=== PATIENT | male | born 1955 | race Caucasian/White ===

== ENCOUNTER 2017-10-21 21:07 | Inpatient (IN) | payer BC ==
[~2017-10-21] VITALS: Ht 165.1 cm; Wt 90.0 kg
[2017-10-21 21:25] VITALS: BP 80/45; PULSE 78; RESP 16; O2SAT 99
[2017-10-21] MEDS ORDERED: SODIUM CHLOR 0.9% 1000 ML INJ 1,000 ML IV ONE ×3 (21:26→23:00)
[2017-10-21 21:30] VITALS: O2SAT 99
[2017-10-21] MEDS ORDERED: SODIUM CHLORIDE 0.9% FLUSH 10 ML FLUSH IVF PRN (21:30)
[2017-10-21 21:58] VITALS: BP 99/52; PULSE 80; RESP 18; O2SAT 99
[2017-10-21 22:04] LABS: AUTOMATED NEUTROPHIL # 7.8 TH/MM3 (1.8-7.7); BASOPHIL % 0.2 % (0.0-2.0); HEMOGLOBIN 13.8 GM/DL (13.0-17.0); LYMPH % 8.7 % (9.0-44.0); LYMPHOCYTE # 0.9 TH/MM3 (1.0-4.8); MEAN CELL VOLUME 88.7 FL (80.0-100.0); MEAN CORPUSCULAR HEMOGLOBIN 29.1 PG (27.0-34.0); MEAN CORPUSCULAR HGB CONC 32.8 % (32.0-36.0); MEAN PLATELET VOLUME 8.5 FL (7.0-11.0); MONO % 10.8 % (0.0-8.0); MONOCYTE # 1.1 TH/MM3 (0-0.9); NEUT % 80.3 % (16.0-70.0); PLATELET COUNT 212 TH/MM3 (150-450); RED BLOOD COUNT 4.74 MIL/MM3 (4.50-5.90); RED CELL DISTRIBUTION WIDTH 12.2 % (11.6-17.2); WHITE BLOOD COUNT 9.8 TH/MM3 (4.0-11.0)
[2017-10-21 22:10] LABS: CHLORIDE 95 MEQ/L (98-107); SODIUM (NA) 130 MEQ/L (136-145)
[2017-10-21 22:14] LABS: BICARBONATE 27.2 MEQ/L (21.0-32.0); CALCIUM 8.4 MG/DL (8.5-10.1)
--- NOTE | 2017-10-21 22:14 | PD ---
HPI Chief Complaint: GI Complaint Time Seen by Provider: 21:26 Travel History International Travel<30 days: No Contact w/Intl Traveler<30days: No Traveled to known affect area: No History of Present Illness HPI 62-year-old male presents to the emergency department by private transportation the care of her spouse for evaluation of generalized weakness with diarrhea. According the patient 2 days ago he developed diarrheal illness with nausea and vomiting after eating a [employer]-román[employer] sandwich on Saturday. Patient is diabetic. Patient has had poor oral intake but has continue to administer insulin. Patient was visiting out of state in [place] and decided to drive home instead of being evaluated when his symptoms began in [place]. Patient suspects he may have had some food poisoning. No report of chills or fever. Patient has had no hematemesis no coffee-ground emesis no melena or hematochezia. Patient is not reporting abdominal pain. Patient has noted progressively worsening generalized weakness. Patient has history of diabetes as well as coronary vessel disease with previous ME and CABG. Patient does not report any chest pain or referred neck jaw back shoulder arm pain. Patient has experienced some diaphoresis. PFSH Past Medical History Narrative Medical CAD ME dyslipidemia diabetes CABG HTN occasional alcohol use no tobacco use; nursing notes reviewed High Cholesterol: Yes Diabetes: Yes Patient Takes Glucophage: No Diminished Hearing: No Hypertension: Yes Tetanus Vaccination: < 5 Years Influenza Vaccination: Yes ?: Not Past Surgical History Coronary Artery Bypass Graft: Yes ([place] Bypass 2001) Social History Alcohol Use: Yes (social) Tobacco Use: No Substance Use: No Allergies-Medications (Allergen,Severity, Reaction): Coded Allergies: No Known Allergies (Verified Allergy, Unknown, 10/21/17) Narrative Medication Insulin crestor ramipril aspirin Review of Systems Except as stated in HPI: all other systems reviewed are Neg General / Constitutional: Positive: Chills, No: Fever HENT: No: Congestion Cardiovascular: No: Chest Pain or Discomfort Respiratory: No: Shortness of Breath Gastrointestinal: Positive: Nausea, Diarrhea, No: Hematemesis, Hematochezia Genitourinary: Positive: Decreased Urinary Output, No: Dysuria Musculoskeletal: No: Myalgias, Arthralgias Skin: No Rash Neurologic: Positive: Weakness Psychiatric: No: Anxiety Hematologic/Lymphatic: No: Lymph Node Enlargement Physical Exam Narrative GENERAL: Well-developed well-nourished male in no acute distress no respiratory distress however is noted to be hypotensive; blood sugar is 328 SKIN: Warm and dry. HEAD: Normocephalic. EYES: No scleral icterus. No injection or drainage. NECK: Supple, trachea midline. No JVD or lymphadenopathy. CARDIOVASCULAR: Regular rate and rhythm without murmurs, gallops, or rubs. RESPIRATORY: Breath sounds equal bilaterally. No accessory muscle use. GASTROINTESTINAL: Abdomen soft, non-tender, nondistended. MUSCULOSKELETAL: No cyanosis, or edema. BACK: Nontender without obvious deformity. No CVA tenderness. Data Data Last Documented VS Vital Signs Date Time Temp Pulse Resp B/P (MAP) Pulse Ox O2 Delivery O2 Flow Rate FiO2 10/21/17 22:57 88 18 113/58 (76) 95 Room Air Orders Orders Electrocardiogram (10/21/17 21:26) Complete Blood Count With Diff (10/21/17 21:26) Comprehensive Metabolic Panel (10/21/17 21:26) Magnesium (Mg) (10/21/17 21:26) Beta Hydroxybutyrate (Acetone) (10/21/17 21:26) Lactic Acid (10/21/17 21:26) Urinalysis - C+S If Indicated (10/21/17 21:26) Blood Culture (10/21/17 21:26) Chest, Single Ap (10/21/17 21:26) Blood Glucose (10/21/17 21:26) Ecg Monitoring (10/21/17 21:26) Iv Access Insert/Monitor (10/21/17 21:26) Oximetry (10/21/17 21:26) NPO (10/21/17 21:26) Sodium Chlor 0.9% 1000 Ml Inj (Ns 1000 M (10/21/17 21:26) Sodium Chlor 0.9% 1000 Ml Inj (Ns 1000 M (10/21/17 21:56) Sodium Chloride 0.9% Flush (Ns Flush) (10/21/17 21:30) Troponin I (10/21/17 21:26) Lipase (10/21/17 21:26) Enteric Path (Stool) (10/21/17 21:26) Blood Gas Venous Ph (10/21/17 21:26) Sodium Chlor 0.9% 1000 Ml Inj (Ns 1000 M (10/21/17 23:00) Ckmb (Isoenzyme) Profile (10/21/17 21:50) CKMB (10/21/17 21:50) CKMB% (10/21/17 21:50) C Diff Toxin Pcr (10/21/17 23:18) Admit Order (Ed Use Only) (10/21/17 ) Gypsum Block Setter / Telemetry SAE.Q8H (10/21/17 23:19) Activity Bed Rest (10/21/17 23:19) Notify Dr: Other (10/21/17 23:19) Consult Cardiology (10/21/17 ) Labs Laboratory Tests Test 10/21/17 21:48 10/21/17 21:50 10/21/17 23:15 Venous Blood pH 7.39 White Blood Count 9.7 TH/MM3 Red Blood Count 4.74 MIL/MM3 Hemoglobin 14.1 GM/DL Hematocrit 42.5 % Mean Corpuscular Volume 89.6 FL Mean Corpuscular Hemoglobin 29.8 PG Mean Corpuscular Hemoglobin Concent 33.3 % Red Cell Distribution Width 12.8 % Platelet Count 228 TH/MM3 Mean Platelet Volume 9.6 FL Neutrophils (%) (Auto) 80.3 % Lymphocytes (%) (Auto) 8.7 % Monocytes (%) (Auto) 10.8 % Eosinophils (%) (Auto) 0.0 % Basophils (%) (Auto) 0.2 % Neutrophils # (Auto) 7.8 TH/MM3 Lymphocytes # (Auto) 0.9 TH/MM3 Monocytes # (Auto) 1.1 TH/MM3 Eosinophils # (Auto) 0.0 TH/MM3 Basophils # (Auto) 0.0 TH/MM3 CBC Comment DIFF FINAL Differential Comment Prothrombin Time 11.1 SEC Prothromb Time International Ratio 1.1 RATIO Activated Partial Thromboplast Time 27.5 SEC Blood Urea Nitrogen 19 MG/DL Creatinine 2.30 MG/DL Random Glucose 345 MG/DL Total Protein 7.4 GM/DL Albumin 3.0 GM/DL Calcium Level 8.4 MG/DL Magnesium Level 2.1 MG/DL Alkaline Phosphatase 96 U/L Aspartate Amino Transf (AST/SGOT) 36 U/L Alanine Aminotransferase (ALT/SGPT) 15 U/L Total Bilirubin 0.8 MG/DL Sodium Level 130 MEQ/L Potassium Level 4.0 MEQ/L Chloride Level 95 MEQ/L Carbon Dioxide Level 27.2 MEQ/L Anion Gap 8 MEQ/L Estimat Glomerular Filtration Rate 29 ML/MIN Lactic Acid Level 1.8 mmol/L Total Creatine Kinase 260 U/L Creatine Kinase MB 1.4 NG/ML Troponin I 0.15 NG/ML Lipase 98 U/L B-Hydroxybutyrate 0.49 MMOL/L Stool C. difficile Toxin (PCR) NEGATIVE Stl C. difficile Toxin Epiderm 027 PRESUMPTIVE NEGATIVE MDM Medical Decision Making Medical Screen Exam Complete: Yes Emergency Medical Condition: Yes Medical Record Reviewed: Yes Interpretation(s) EKG: Normal sinus rhythm rate 82 right ventricular conduction delay age- indeterminate inferior ME with no acute ST elevation venous pH: 7.39, wnl Last Impressions Chest X-Ray 10/21/172125 Signed Impressions: Service Date/Time: Saturday, October 21, 2017 21:47 - CONCLUSION: 1. No active disease. Postoperative median sternotomy. Calvin Lafleur MD CBC & BMP Diagram 10/21/17 21:50 Total Protein 7.4, Albumin 3.0 L, Calcium Level 8.4 L, Magnesium Level 2.1, Alkaline Phosphatase 96, Aspartate Amino Transf (AST/SGOT) 36, Alanine Aminotransferase (ALT/SGPT) 15, Total Bilirubin 0.8 Vital Signs Date Time Temp Pulse Resp B/P (MAP) Pulse Ox O2 Delivery O2 Flow Rate FiO2 10/21/17 21:58 80 18 99/52 (68) 99 Room Air 10/21/17 21:30 99 Room Air 10/21/17 21:25 16 10/21/17 21:25 78 16 80/45 (57) 99 Room Air troponin I: 0.15, elevated BHB: 0.49, elevated Differential Diagnosis Generalized weakness, sepsis, gastroenteritis, uncontrolled diabetes/ hyperglycemia, KEWEENAW, dka, electrolyte disturbance, ACS, ME, cardiogenic shock Narrative Course Patient placed on bus driver/monitor IV access obtained specimens collected and sent for resulting EKG shows no acute ST elevation or injury pattern age- indeterminate inferior ME is noted venous pH is 7.39 patient administered 2 L of normal saline and random bedside glucose is 328. Lab work is remarkable for troponin I of 0.15 this is elevated; beta hydroxybutyric acid is mildly elevated at 0.49 upper limit of normal is 0.39; patient has been re-interviewed and again denies any chest pain referred neck jaw back shoulder arm or abdominal pain. Patient states that he has a history of ME with an abnormal EKG. Patient is unaware of any renal insufficiency. Patient's crown ironer is Dr. Levon Mullins and he is scheduled for stress test March 2018. Patient given additional IV fluid bolus as he is still not produced any urine/ urine output also no loose stool or diarrhea. Patient denies any nausea has had no vomiting here. Denies any chest pain or nausea and has had no vomiting here also no referred neck jaw back shoulder arm pain and no diaphoresis or shortness of breath. Discussed with his crown ironer Dr Mullins ---wants patient transferred to [facility] w/ heparin; patient aware of plan for admission and transfer; call placed to [facility] MD service for admission --Dr Ibarra- ordered heparin and c.diff Critical Care Narrative Aggregate critical care time was 35 minutes. Time to perform other separately billable procedures was not included in the critical care time. My time did not include minutes spent treating any other patients simultaneously or on activities that did not directly contribute to the patient's treatment. The services I provided to this patient were to treat and/or prevent clinically significant deterioration that could result in: ME cardiogenic shock dka I provided critical care services requiring my management, as noted below: Chart data review, documentation time, medication orders and management, vital sign assessments/reviewing monitor data, ordering and reviewing lab tests, ordering and interpreting/reviewing x-rays and diagnostic studies, care of the patient and discussion of the patient with the admitting physicians. HemaPrompt Point of Care Internal Pos. & Neg. Controls: Passed Fecal Specimen Occult Blood: Negative ((watery green stool/diarrhea specimen)) Physician Communication Physician Communication call placed to cardiology; call placed to [facility] Diagnosis Primary Impression: ACS (acute coronary syndrome) Additional Impressions: Elevated troponin I level Diabetes mellitus with hyperglycemia Qualified Codes: E11.65 - Type 2 diabetes mellitus with hyperglycemia; Z79.4 - nursing home (current) use of insulin Gastroenteritis Renal insufficiency Admitting Information Admitting Physician Requests: Admit Camille Leonard MD October 21, 2017 22:14
[2017-10-21 22:15] LABS: BLOOD UREA NITROGEN 19 MG/DL (7-18); GLUCOSE,RANDOM 345 MG/DL (74-106); MAGNESIUM 2.1 MG/DL (1.5-2.5)
[2017-10-21 22:17] LABS: ALT (GPT) 15 U/L (12-78)
[2017-10-21 22:18] LABS: AST (GOT) 36 U/L (15-37); GLOMERULAR FILTRATION RATE 29 ML/MIN (>89)
[2017-10-21 22:19] LABS: TOTAL BILIRUBIN ADULT 0.8 MG/DL (0.2-1.0); TOTAL PROTEIN 7.4 GM/DL (6.4-8.2)
[2017-10-21 22:20] LABS: ALKALINE PHOSPHATASE 96 U/L (45-117)
--- NOTE | 2017-10-21 22:21 | RADRPT ---
EXAM DATE/TIME: 10/21/2017 21:47 [facility] COMPARISON: No previous studies available for comparison. INDICATIONS : Shortness of breath. MEDICAL HISTORY : None. SURGICAL HISTORY : CABG. ENCOUNTER: Initial ACUITY: 2 days PAIN SCORE: 0/10 LOCATION: Bilateral chest FINDINGS: A single view of the chest demonstrates the lungs to be symmetrically aerated without evidence of mas s, infiltrate or effusion. The cardiomediastinal contours are unremarkable. Osseous structures are intact. CONCLUSION: 1. No active disease. Postoperative median sternotomy. Calvin Lafleur MD on October 21, 2017 at 22:18 Board Certified Radiologist. This report was verified electronically.
[2017-10-21 22:23] LABS: TROPONIN I 0.15 NG/ML (0.02-0.05)
[2017-10-21 22:57] VITALS: BP 113/58; PULSE 88; RESP 18; O2SAT 95
[2017-10-21] MEDS ORDERED: HEPARIN SODIUM - IV 10,000 UNITS/10 ML VIAL IV ONE (23:30)
[2017-10-21] MEDS ORDERED: MAGNESIUM HYDROXIDE SUSP 30 ML CUP PO PRN (23:30)
[2017-10-21] MEDS ORDERED: HEPARIN-D5W 25,000 U/250 ML 250 ML IV PRN (23:30)
[2017-10-21] MEDS ORDERED: ASPIRIN 81 MG CHEW TAB CHEW ONE (23:30)
[2017-10-21] MEDS ORDERED: BISACODYL 10 MG SUPP RECTAL PRN (23:30)
[2017-10-21] MEDS ORDERED: NALOXONE HCL 0.4 MG/ML AMP IV PUSH PRN (23:30)
[2017-10-21] MEDS ORDERED: LACTULOSE SYRUP 20 GM/30 ML CUP PO PRN (23:30)
[2017-10-21] MEDS ORDERED: ONDANSETRON HCL 4 MG/2 ML VIAL IVP PRN (23:30)
[2017-10-21] MEDS ORDERED: SODIUM CHLORIDE 0.9% FLUSH 10 ML FLUSH IV FLUSH PRN (23:30)
[2017-10-21] MEDS ORDERED: SENNOSIDES 8.6 MG TAB PO PRN (23:30)
[2017-10-21] MEDS ORDERED: HEPARIN 25,000 UNITS-D5W 250 ML - PREMIX IV PRN (23:45)
[2017-10-21 23:49] LABS: HEMATOCRIT 42.5 % (39.0-51.0); HEMOGLOBIN 14.1 GM/DL (13.0-17.0); MEAN CELL VOLUME 89.6 FL (80.0-100.0); MEAN CORPUSCULAR HEMOGLOBIN 29.8 PG (27.0-34.0); MEAN CORPUSCULAR HGB CONC 33.3 % (32.0-36.0); MEAN PLATELET VOLUME 9.6 FL (7.0-11.0); PLATELET COUNT 228 TH/MM3 (150-450); RED BLOOD COUNT 4.74 MIL/MM3 (4.50-5.90); RED CELL DISTRIBUTION WIDTH 12.8 % (11.6-17.2); WHITE BLOOD COUNT 9.7 TH/MM3 (4.0-11.0)
[2017-10-22] VITALS (22 sets, daily range): BP systolic 99–144; BP diastolic 52–72; PULSE 67–94; RESP 16–18; TEMP 97.9–98.2; O2SAT 95–98
[2017-10-22 00:02] LABS: INTERNATIONAL NORMALIZED RATIO 1.1 RATIO; PROTHROMBIN TIME - PATIENT 11.1 SEC (9.8-11.6)
[2017-10-22] MEDS: SODIUM CHLOR 0.9% 1000 ML INJ 1,000 ML IV SCH ×3 (00:06→19:20)
[2017-10-22 03:54] LABS: BILIRUBIN, URINE NEG (NEG); BLOOD, URINE TRACE (NEG); GLUCOSE,URINE 250 mg/dL (NEG); KETONE, URINE NEG (NEG); NITRITE,URINE NEG (NEG); PH, URINE 5.5 (5.0-8.5); URINE COLOR YELLOW (YELLW/STRAW); URINE LEUKOCYTE ESTERASE NEG (NEG)
[2017-10-22 03:59] LABS: SQUAMOUS EPITHELIAL CELL URINE 0-5 /hpf (0-5); WBC, URINE 0-2 /hpf (0-5)
[2017-10-22] MEDS ORDERED: ROSU5 PO (04:15)
[2017-10-22] MEDS ORDERED: LOTE20TA PO (04:15)
[2017-10-22] MEDS ORDERED: LIPI10TA PO (04:15)
[2017-10-22] MEDS ORDERED: HEPARIN SODIUM - IV 10,000 UNITS/10 ML VIAL IV PRN ×2 (05:30)
[2017-10-22 06:25] LABS: AUTOMATED NEUTROPHIL # 4.9 TH/MM3 (1.8-7.7); BASOPHIL % 0.5 % (0.0-2.0); EOSINOPHIL % 0.1 % (0.0-4.0); HEMOGLOBIN 12.8 GM/DL (13.0-17.0); LYMPH % 20.1 % (9.0-44.0); LYMPHOCYTE # 1.4 TH/MM3 (1.0-4.8); MEAN CELL VOLUME 89.8 FL (80.0-100.0); MEAN CORPUSCULAR HEMOGLOBIN 29.4 PG (27.0-34.0); MEAN CORPUSCULAR HGB CONC 32.7 % (32.0-36.0); MEAN PLATELET VOLUME 8.2 FL (7.0-11.0); MONO % 11.7 % (0.0-8.0); MONOCYTE # 0.8 TH/MM3 (0-0.9); NEUT % 67.6 % (16.0-70.0); PLATELET COUNT 188 TH/MM3 (150-450); RED BLOOD COUNT 4.34 MIL/MM3 (4.50-5.90); RED CELL DISTRIBUTION WIDTH 12.4 % (11.6-17.2); WHITE BLOOD COUNT 7.1 TH/MM3 (4.0-11.0)
[2017-10-22 06:59] LABS: ALBUMIN 2.6 GM/DL (3.4-5.0); ALKALINE PHOSPHATASE 84 U/L (45-117); ALT (GPT) 16 U/L (12-78); AST (GOT) 31 U/L (15-37); BICARBONATE 24.1 MEQ/L (21.0-32.0); BLOOD UREA NITROGEN 18 MG/DL (7-18); CALCIUM 7.7 MG/DL (8.5-10.1); CHLORIDE 104 MEQ/L (98-107); GLOMERULAR FILTRATION RATE 47 ML/MIN (>89); GLUCOSE,RANDOM 169 MG/DL (74-106); SODIUM (NA) 135 MEQ/L (136-145); TOTAL BILIRUBIN ADULT 0.5 MG/DL (0.2-1.0); TOTAL PROTEIN 6.5 GM/DL (6.4-8.2)
[2017-10-22] MEDS ORDERED: CARV12.52 PO (08:16)
[2017-10-22] MEDS ORDERED: RAMI10CA PO (08:16)
[2017-10-22] MEDS ORDERED: HUMALOG SQ (08:17)
[2017-10-22] MEDS: INSULIN ASPART SUPPLEMENTAL SCALE SQ SCH ×4 (08:19→22:00)
[2017-10-22] MEDS: SODIUM CHLORIDE 0.9% FLUSH 10 ML FLUSH IV FLUSH SCH ×2 (09:00→21:00)
[2017-10-22] MEDS: ASPIRIN EC 81 MG TABEC PO SCH (09:08)
[2017-10-22] MEDS: CARVEDILOL 12.5 MG TAB PO SCH ×2 (09:30→21:58)
--- NOTE | 2017-10-22 10:51 | EKG ---
Date Performed: 10/22/2017 Time Performed: 05:29:55 PTAGE: 62 years EKG: Sinus rhythm POSSIBLE LEFT ATRIAL ENLARGEMENT LOW QRS VOLTAGE IN PRECORDIAL LEADS POSSIBLE RIGHT VENTRICULAR COND UCTION DELAY INFERIOR MYOCARDIAL INFARCTION ABNORMAL ECG PREVIOUS TRACING : 10/21/2017 23.41 DOCTOR: Abdirashid Walton Interpretating Date/Time 10/22/2017 10:48:08
--- NOTE | 2017-10-22 10:59 | EKG ---
Date Performed: 10/21/2017 Time Performed: 23:41:11 PTAGE: 62 years EKG: Sinus rhythm WITH FIRST DEGREE AV BLOCK POSSIBLE LEFT ATRIAL ENLARGEMENT LOW QRS VOLTAGE IN PRECORDIAL LEADS POSS IBLE RIGHT VENTRICULAR CONDUCTION DELAY INFERIOR MYOCARDIAL INFARCTION ABNORMAL ECG PREVIOUS TRACING : 10/21/2017 22.06 DOCTOR: Abdirashid Walton Interpretating Date/Time 10/22/2017 10:58:07
--- NOTE | 2017-10-22 11:04 | EKG ---
Date Performed: 10/21/2017 Time Performed: 22:06:23 PTAGE: 62 years EKG: Sinus rhythm POSSIBLE LEFT ATRIAL ENLARGEMENT POSSIBLE RIGHT VENTRICULAR CONDUCTION DELAY INFERIOR MYOCARDIAL INF ARCTION ABNORMAL ECG NO PREVIOUS TRACING DOCTOR: Abdirashid Walton Interpretating Date/Time 10/22/2017 11:02:26
--- NOTE | 2017-10-22 15:19 | HHI.HP ---
[facility] ZOHAIB [facility] Admission Diagnosis acs; elevated troponinI; DM; gastroenteritis; OC Diagnoses: Chief Complaint: Diarrhea, nausea and vomiting. Travel History International Travel<30 Days: No Contact w/Intl Traveler <30 Da: No Traveled to Known Affected Are: No History of Present Illness 62-year-old male with a medical history significant for CAD status post CABG, hypertension, diabetes who presented to the hospital with complaint of persistent diarrhea, nausea and vomiting. Patient reports about 3 days ago, he was in [place] for a golf tournament, has been out in the sun for a few days. He ate a [employer]án[employer] sandwich and has been having nonbloody diarrhea since then. There has been no fever or chills. He has been having some nausea and episodes of diaphoresis. Workup in the emergency room in [place] revealed mildly elevated cardiac enzymes, therefore the patient was transferred to the [facility] hospital on a heparin drip for cardiology evaluation. On my evaluation, the patient reports he is feeling much better, he still has the diarrhea but it is decreasing in frequency. He feels like he can eat. He denies any chest pain or shortness of breath. Review of Systems Constitutional: DENIES: Fever, Chills Cardiovascular: DENIES: Chest pain, Palpitations Gastrointestinal: COMPLAINS OF: Diarrhea, Nausea, Vomiting Except as stated in HPI: all other systems reviewed are Neg Past Family Social History Past Medical History Coronary artery disease status post CABG Hypertension Hyperlipidemia Diabetes Past Surgical History CABG in 2001 Reported Medications Reported Meds & Active Scripts Active Reported Humalog Inj (Insulin Human Lispro) 1,000 Unit/10 Ml Vial 1-9 Units SQ ACHS Max dose at bedtime:( )units; sugars< 70,(0)units; sugars 150-199,(1)unit; sugars 200-249,(3)units; sugars 250-299,(5)units; sugars 300-349,(7)units; sugars more than 349,(9)units. Ramipril 10 Mg Cap 10 Mg PO DAILY Carvedilol 12.5 Mg Tab 12.5 Mg PO BID Lipitor (Atorvastatin Calcium) 10 Mg Tab 10 Mg PO HS Crestor (Rosuvastatin Calcium) 5 Mg Tab 40 Mg PO DAILY Allergies: Coded Allergies: No Known Allergies (Verified Allergy, Unknown, 10/21/17) Family History Reviewed and is noncontributory. Social History Patient does not use tobacco. He admits to drinking wine socially. Physical Exam Vital Signs Vital Signs Date Time Temp Pulse Resp B/P (MAP) Pulse Ox O2 Delivery O2 Flow Rate FiO2 10/22/17 15:04 98.1 81 18 117/59 (78) 95 10/22/17 15:00 77 10/22/17 14:00 77 10/22/17 13:48 97.9 68 16 139/63 (88) 96 10/22/17 13:46 73 10/22/17 13:03 10/22/17 11:44 88 16 114/59 (77) 95 Room Air 10/22/17 07:05 88 18 131/72 (91) 97 Room Air 10/22/17 06:22 83 18 132/65 (87) 97 Room Air 10/22/17 05:15 80 18 127/64 (85) 98 Room Air 10/22/17 04:15 73 18 109/58 (75) 96 Room Air 10/22/17 03:15 18 10/22/17 03:14 71 18 113/63 (80) 95 Room Air 10/22/17 02:00 68 18 114/52 (72) 96 Room Air 10/22/17 01:00 70 18 99/52 (68) 95 Room Air 10/22/17 00:22 73 16 104/57 (73) 95 Room Air 10/21/17 22:57 88 18 113/58 (76) 95 Room Air 10/21/17 21:58 80 18 99/52 (68) 99 Room Air 10/21/17 21:30 99 Room Air 10/21/17 21:25 16 10/21/17 21:25 78 16 80/45 (57) 99 Room Air Physical Exam GENERAL: This is a well-nourished, well-developed patient, in no apparent distress. SKIN: No rashes, ecchymoses or lesions. Cool and dry. HEAD: Atraumatic. Normocephalic. No temporal or scalp tenderness. EYES: Pupils equal round and reactive. Extraocular motions intact. No scleral icterus. No injection or drainage. ENT: Nose without bleeding, purulent drainage or septal hematoma. Throat without erythema, tonsillar hypertrophy or exudate. Uvula midline. Airway patent. NECK: Trachea midline. No JVD or lymphadenopathy. Supple, nontender, no meningeal signs. CARDIOVASCULAR: Regular rate and rhythm without murmurs, gallops, or rubs. RESPIRATORY: Clear to auscultation. Breath sounds equal bilaterally. No wheezes , rales, or rhonchi. GASTROINTESTINAL: Abdomen soft, non-tender, nondistended. No hepato-splenomegaly , or palpable masses. No guarding. MUSCULOSKELETAL: Extremities without clubbing, cyanosis, or edema. No joint tenderness, effusion, or edema noted. No calf tenderness. Negative Homans sign bilaterally. NEUROLOGICAL: Awake and alert. Cranial nerves II through XII intact. Motor and sensory grossly within normal limits. Five out of 5 muscle strength in all muscle groups. Normal speech. Laboratory Laboratory Tests Test 10/21/17 21:48 10/21/17 21:50 10/21/17 23:15 10/22/17 00:06 Venous Blood pH 7.39 White Blood Count 9.7 Red Blood Count 4.74 Hemoglobin 14.1 Hematocrit 42.5 Mean Corpuscular Volume 89.6 Mean Corpuscular Hemoglobin 29.8 Mean Corpuscular Hemoglobin Concent 33.3 Red Cell Distribution Width 12.8 Platelet Count 228 Mean Platelet Volume 9.6 Neutrophils (%) (Auto) 80.3 Lymphocytes (%) (Auto) 8.7 Monocytes (%) (Auto) 10.8 Eosinophils (%) (Auto) 0.0 Basophils (%) (Auto) 0.2 Neutrophils # (Auto) 7.8 Lymphocytes # (Auto) 0.9 Monocytes # (Auto) 1.1 Eosinophils # (Auto) 0.0 Basophils # (Auto) 0.0 CBC Comment DIFF FINAL Differential Comment Prothrombin Time 11.1 Prothromb Time International Ratio 1.1 Activated Partial Thromboplast Time 27.5 Blood Urea Nitrogen 19 Creatinine 2.30 Random Glucose 345 Total Protein 7.4 Albumin 3.0 Calcium Level 8.4 Magnesium Level 2.1 Alkaline Phosphatase 96 Aspartate Amino Transf (AST/SGOT) 36 Alanine Aminotransferase (ALT/SGPT) 15 Total Bilirubin 0.8 Sodium Level 130 Potassium Level 4.0 Chloride Level 95 Carbon Dioxide Level 27.2 Anion Gap 8 Estimat Glomerular Filtration Rate 29 Lactic Acid Level 1.8 Total Creatine Kinase 260 Creatine Kinase MB 1.4 Troponin I 0.15 0.09 Lipase 98 B-Hydroxybutyrate 0.49 Stool C. difficile Toxin (PCR) NEGATIVE Stl C. difficile Toxin Epiderm 027 PRESUMPTIVE NEGATIVE Test 10/22/17 03:50 10/22/17 06:16 10/22/17 12:45 Urine Color YELLOW Urine Turbidity CLEAR Urine pH 5.5 Urine Specific [place] 1.015 Urine Protein 30 Urine Glucose (UA) 250 Urine Ketones NEG Urine Occult Blood TRACE Urine Nitrite NEG Urine Bilirubin NEG Urine Urobilinogen 0.2 Urine Leukocyte Esterase NEG Urine RBC 3-5 Urine WBC 0-2 Urine Squamous Epithelial Cells 0-5 Urine Bacteria NONE Microscopic Urinalysis Comment CULT NOT INDICATED White Blood Count 7.1 Red Blood Count 4.34 Hemoglobin 12.8 Hematocrit 39.0 Mean Corpuscular Volume 89.8 Mean Corpuscular Hemoglobin 29.4 Mean Corpuscular Hemoglobin Concent 32.7 Red Cell Distribution Width 12.4 Platelet Count 188 Mean Platelet Volume 8.2 Neutrophils (%) (Auto) 67.6 Lymphocytes (%) (Auto) 20.1 Monocytes (%) (Auto) 11.7 Eosinophils (%) (Auto) 0.1 Basophils (%) (Auto) 0.5 Neutrophils # (Auto) 4.9 Lymphocytes # (Auto) 1.4 Monocytes # (Auto) 0.8 Eosinophils # (Auto) 0.0 Basophils # (Auto) 0.0 CBC Comment DIFF FINAL Differential Comment Activated Partial Thromboplast Time 35.2 35.5 Blood Urea Nitrogen 18 Creatinine 1.50 Random Glucose 169 Total Protein 6.5 Albumin 2.6 Calcium Level 7.7 Alkaline Phosphatase 84 Aspartate Amino Transf (AST/SGOT) 31 Alanine Aminotransferase (ALT/SGPT) 16 Total Bilirubin 0.5 Sodium Level 135 Potassium Level 3.7 Chloride Level 104 Carbon Dioxide Level 24.1 Anion Gap 7 Estimat Glomerular Filtration Rate 47 Troponin I 0.07 Date/Time Source Procedure Growth Status 10/21/17 21:55 Blood Peripheral Aerobic Blood Culture - Preliminary NO GROWTH IN 1 DAY Resulted 10/21/17 21:55 Blood Peripheral Anaerobic Blood Culture - Preliminary NO GROWTH IN 1 DAY Resulted 10/21/17 23:15 Stool Stool Stool Occult Blood (CASSIDY) - Final HEMOCCULT POSITIVE Complete Result Diagram: 10/22/1761510/22/1716 Imaging Reported Meds & Active Scripts Active Reported Humalog Inj (Insulin Human Lispro) 1,000 Unit/10 Ml Vial 1-9 Units SQ ACHS Max dose at bedtime:( )units; sugars< 70,(0)units; sugars 150-199,(1)unit; sugars 200-249,(3)units; sugars 250-299,(5)units; sugars 300-349,(7)units; sugars more than 349,(9)units. Ramipril 10 Mg Cap 10 Mg PO DAILY Carvedilol 12.5 Mg Tab 12.5 Mg PO BID Lipitor (Atorvastatin Calcium) 10 Mg Tab 10 Mg PO HS Crestor (Rosuvastatin Calcium) 5 Mg Tab 40 Mg PO DAILY Caprini VTE Risk Assessment Caprini VTE Risk Assessment: Mod/High Risk (score >= 2) Caprini Risk Assessment Model Point Value = 1 Point Value = 2 Point Value = 3 Point Value = 5 Age 41-60 Minor surgery BMI > 25 kg/m2 Swollen legs Varicose veins or History of unexplained or recurrent spontaneous Oral contraceptives or hormone replacement Sepsis (< 1 month) Serious lung disease, including pneumonia (< 1 month) Abnormal pulmonary function Acute myocardial infarction Congestive heart failure (< 1 month) History of inflammatory bowel disease Medical patient at bed rest Age 61-74 Arthroscopic surgery Major open surgery (> 45 min) Laparoscopic surgery (> 45 min) Malignancy Confined to bed (> 72 hours) Immobilizing plaster cast Central venous access Age >= 75 History of VTE Family history of VTE Factor V Leiden Prothrombin [id number] Lupus anticoagulant Anticardiolipin antibodies Elevated serum homocysteine Heparin-induced thrombocytopenia Other congenital or acquired thrombophilia Stroke (< 1 month) Elective arthroplasty Hip, pelvis, or leg fracture Acute spinal cord injury (< 1 month) Prophylaxis Regimen Total Risk Factor Score Risk Level Prophylaxis Regimen 0-1 Low Early ambulation 2 Moderate Order ONE of the following: *Sequential Compression Device (SCD) *Heparin 5000 units SQ BID 3-4 Higher Order ONE of the following medications: *Heparin 5000 units SQ TID *Enoxaparin/Lovenox 40 mg SQ daily (WT < 150 kg, CrCl > 30 mL/min) *Enoxaparin/Lovenox 30 mg SQ daily (WT < 150 kg, CrCl > 10-29 mL/min) *Enoxaparin/Lovenox 30 mg SQ BID (WT < 150 kg, CrCl > 30 mL/min) AND/OR *Sequential Compression Device (SCD) 5 or more Highest Order ONE of the following medications: *Heparin 5000 units SQ TID (Preferred with Epidurals) *Enoxaparin/Lovenox 40 mg SQ daily (WT < 150 kg, CrCl > 30 mL/min) *Enoxaparin/Lovenox 30 mg SQ daily (WT < 150 kg, CrCl > 10-29 mL/min) *Enoxaparin/Lovenox 30 mg SQ BID (WT < 150 kg, CrCl > 30 mL/min) AND *Sequential Compression Device (SCD) Assessment and Plan Problem List: (1) Elevated troponin I level ICD Code: R74.8 - Abnormal levels of other serum enzymes Status: Acute Plan: Probably related to renal failure and dehydration. Troponin levels have trended down and plateaued. No cardiovascular symptoms. Cardiology was consulted in the ED and the patient was started on a heparin drip. Will defer further plans to cardiology. Continue Coreg (2) Gastroenteritis ICD Code: K52.9 - Noninfective gastroenteritis and colitis, unspecified Status: Acute Plan: Suspect viral gastroenteritis. Started as diarrhea which is improving. C. difficile was negative. Continue supportive care. Hydration. Anti-emetics. Diet as tolerated. (3) Acute kidney injury ICD Code: N17.9 - Acute kidney failure, unspecified Plan: Likely secondary to dehydration from gastroenteritis. Much improved with IV fluid. Continue and will monitor. (4) Diabetes mellitus with hyperglycemia ICD Code: E11.65 - Type 2 diabetes mellitus with hyperglycemia Status: Acute Physician Certification 2 Midnight Certification Type: Admission for Inpatient Services Order for Inpatient Services The services are ordered in accordance with Medicare regulations or non- Medicare payer requirements, as applicable. In the case of services not specified as inpatient-only, they are appropriately provided as inpatient services in accordance with the 2-midnight benchmark. Estimated LOS (days): 2 days is the estimated time the patient will need to remain in the hospital, assuming treatment plan goals are met and no additional complications. Post-Hospital Plan: Home Problem Qualifiers (1) Diabetes mellitus with hyperglycemia: Qualified Codes: E11.65 - Type 2 diabetes mellitus with hyperglycemia; Z79.4 - superintendent [employer] (current) use of insulin Kalli Dan MD October 22, 2017 15:19
[2017-10-22] MEDS ORDERED: METOPROLOL TARTRATE 25 MG TAB PO PRN (17:30)
--- NOTE | 2017-10-22 17:51 | MB ---
cc: Levon Mullins MD DATE: 10/22/2017 REASON FOR CONSULTATION: Evaluation of cardiac status with elevation in troponin. HISTORY OF PRESENT ILLNESS: Alex Portillo is a 62-year-old man who I just picked up as a new patient within the past year. The patient has longstanding hypertension, diabetes, hyperlipidemia, and has had previous bypass surgery. He came in with a story that he was in his usual state of health until Saturday when he was on a golf course and ate some chicken that did not taste right. He then started getting horrible diarrhea. He decided to try to drive home from [place] to [place]. It got so bad that he had to stop and stayed at a rest area he was having diarrhea so frequently. It got to the point where he could not eat anything and got progressively dehydrated, actually had an episode of syncope while at home. His finally convinced him to come to the hospital and he was found to be hypotensive and severely dehydrated. He is feeling tremendously better now. He is actually able to eat. The diarrhea has lessened, but not resolved. He has had no angina, no chest tightness, no chest pressure. The ER lisseth a troponin level on him, which was elevated and they spoke to me in the middle of the night. I do not remember the conversation, but unfortunately made a decision to transfer him to the main hospital thinking he might need a heart catheterization. He has had absolutely no cardiac symptoms and his troponin has been trending down. He has got multiple cardiac risk factors including hypertension, diabetes, obesity, and hyperlipidemia. He has had no anginal symptoms prior to this event. PAST MEDICAL HISTORY: Includes coronary artery disease with previous bypass surgery. Last heart catheterization was in 2008 showing occlusion of a nondominant right coronary artery, a patent left internal mammary graft to the LAD, a patent vein graft to a small obtuse marginal branch and a patent sequential vein graft to a diagonal and LAD. He does have distal LAD disease documented on his previous catheterization. OTHER PAST MEDICAL HISTORY: Dyslipidemia with low HDL, essential hypertension, obesity, history of prior non-STEMI before his bypass and type 2 diabetes. PAST SURGICAL HISTORY: Includes his bypass surgery and retinal surgery. MEDICATIONS: 1. He was on aspirin. 2. Carvedilol 12.5 b.i.d. 3. Ramipril 10 mg daily. 4. Rosuvastatin 40 mg daily. 5. NovoLog pump. ALLERGIES: INCLUDE PLAVIX, with which he gets a rash. FAMILY HISTORY: Negative for heart disease. SOCIAL HISTORY: He has never smoked. Has some wine on a daily basis, but none recently. REVIEW OF SYSTEMS: Only notable for him having a previous ankle fracture. Remaining review of systems is negative. PHYSICAL EXAMINATION: GENERAL: Reveals an obese, pleasant white male. He appears nontoxic. VITAL SIGNS: Charted. He is normotensive off his blood pressure medicines. HEENT: Unremarkable. NECK: Shows no JVD. No bruits. CHEST: Clear to auscultation. CARDIOVASCULAR: Normal S1 and S2. Regular rate and rhythm with a grade 1/6 systolic ejection murmur. ABDOMEN: Shows hyperactive bowel sounds. EXTREMITIES: No clubbing, cyanosis or edema. Pulses are intact. EKG shows sinus rhythm with an old inferior OR. There does not appear to be any changes from his old tracings. LABORATORY DATA: Troponin has gone from 0.15, slightly down to 0.07. Repeat for tomorrow morning is ordered. BUN and creatinine were elevated. Creatinine was 2.3, now to 1.5. Blood pressure, which was 80 in the ER, has now stabilized. IMPRESSION: Acute severe diarrheal event with dehydration and syncope, slight elevation of troponin, but really nothing clinically to argue for acute coronary syndrome. He has had a major stress test with hypotension and dehydration with no chest pain. I do not think he has an acute cardiac event. PLAN: I am going to discontinue the heparin. I wrote a p.r.n. order for metoprolol if his and blood pressure starts to rise. I will reassess tomorrow morning. Tentatively not planning to do an ischemic workup during this admission unless there are other findings that would indicate need for that. MD RANDEE Barraza/CHUCK , 05:27 PM , 05:49 PM
[2017-10-22] MEDS: ATORVASTATIN 10 MG TAB PO SCH (21:58)
[2017-10-23] VITALS (26 sets, daily range): BP systolic 93–138; BP diastolic 50–76; PULSE 60–80; RESP 16–20; TEMP 97.8–98.6; O2SAT 93–96
[2017-10-23] MEDS: SODIUM CHLOR 0.9% 1000 ML INJ 1,000 ML IV SCH (05:20)
[2017-10-23 05:39] LABS: HEMATOCRIT 35.4 % (39.0-51.0); MEAN CORPUSCULAR HEMOGLOBIN 30.2 PG (27.0-34.0); MEAN PLATELET VOLUME 8.7 FL (7.0-11.0); PLATELET COUNT 209 TH/MM3 (150-450); RED BLOOD COUNT 3.98 MIL/MM3 (4.50-5.90); RED CELL DISTRIBUTION WIDTH 13.3 % (11.6-17.2); WHITE BLOOD COUNT 5.2 TH/MM3 (4.0-11.0)
[2017-10-23 06:06] LABS: ALBUMIN 2.5 GM/DL (3.4-5.0); ALT (GPT) 12 U/L (12-78); AST (GOT) 20 U/L (15-37); BICARBONATE 21.8 MEQ/L (21.0-32.0); BLOOD UREA NITROGEN 16 MG/DL (7-18); CALCIUM 7.9 MG/DL (8.5-10.1); CHLORIDE 108 MEQ/L (98-107); CREATININE 1.15 MG/DL (0.60-1.30); GLOMERULAR FILTRATION RATE 64 ML/MIN (>89); GLUCOSE,RANDOM 220 MG/DL (74-106); SODIUM (NA) 139 MEQ/L (136-145)
[2017-10-23 06:10] LABS: ALKALINE PHOSPHATASE 71 U/L (45-117); TOTAL BILIRUBIN ADULT 0.3 MG/DL (0.2-1.0); TOTAL PROTEIN 5.7 GM/DL (6.4-8.2); TROPONIN I 0.05 NG/ML (0.02-0.05)
[2017-10-23 07:26] LABS: BANDS 23 % (0-6); BASOPHILS 1 % (0-2); LYMPHOCYTES 25 % (9-44); MONOCYTES 15 % (0-8); POLYS (SEG NEUTROPHILS) 34 % (16-70)
--- NOTE | 2017-10-23 07:44 | PD.CARD.PN ---
Subjective Subjective Remarks no complaints. Feels better. Has not had any angina Objective Medications Current Medications Medications (Trade) Dose Ordered Sig/Lindy Route Start Time Stop Time Status Last Admin (NS Flush) 2 ml UNSCH PRN IVF 10/21/17 21:30 (NovoLOG SUPPLEMENTAL SCALE) 1 ACHS SLIDING SCALE SQ 10/22/17 08:00 10/22/17 22:00 Sodium Chloride 1,000 ml @ 100 mls/hr Q10H IV 10/21/17 23:20 10/22/17 11:43 (NS Flush) 2 ml UNSCH PRN IV FLUSH 10/21/17 23:30 (NS Flush) 2 ml BID IV FLUSH 10/22/17 09:00 (Zofran Inj) 4 mg Q6H PRN IVP 10/21/17 23:30 (Narcan Inj) 0.4 mg UNSCH PRN IV PUSH 10/21/17 23:30 (Milk Of Magnesia Liq) 30 ml Q12H PRN PO 10/21/17 23:30 (Senokot) 17.2 mg Q12H PRN PO 10/21/17 23:30 (Dulcolax Supp) 10 mg DAILY PRN RECTAL 10/21/17 23:30 (Lactulose Liq) 30 ml DAILY PRN PO 10/21/17 23:30 (Ecotrin Ec) 81 mg DAILY PO 10/22/17 09:00 10/22/17 09:08 (Coreg) 12.5 mg BID PO 10/22/17 09:30 10/22/17 21:58 (Lipitor) 10 mg HS PO 10/22/17 21:00 10/22/17 21:58 Vital Signs / I&O Vital Signs Date Time Temp Pulse Resp B/P (MAP) Pulse Ox O2 Delivery O2 Flow Rate FiO2 10/23/17 06:00 66 10/23/17 05:00 60 10/23/17 04:00 98.6 70 16 111/57 (75) 94 10/23/17 04:00 65 10/23/17 03:00 69 10/23/17 02:00 71 10/23/17 01:00 71 10/23/17 00:00 71 10/22/17 23:19 98.2 81 16 144/72 (96) 95 10/22/17 23:00 88 10/22/17 22:00 84 10/22/17 21:00 67 10/22/17 20:00 98.2 77 16 117/64 (81) 95 10/22/17 18:00 92 10/22/17 17:00 94 10/22/17 16:00 78 10/22/17 15:04 98.1 81 18 117/59 (78) 95 10/22/17 15:00 77 10/22/17 14:00 77 10/22/17 13:48 97.9 68 16 139/63 (88) 96 10/22/17 13:46 73 10/22/17 13:03 10/22/17 11:44 88 16 114/59 (77) 95 Room Air I/O 10/22/17 10/22/17 10/22/17 10/23/17 10/23/17 10/23/17 07:00 15:00 23:00 07:00 15:00 23:00 Intake Total 2000 ml 480 ml 680 ml Output Total 100 ml Balance 1900 ml 480 ml 680 ml Intake Oral 480 ml 680 ml IV Total 2000 ml Output Stool Total 100 ml # Voids 2 2 # Bowel Movements 2 1 2 Physical Exam GENERAL: Well developed, well nourished. No acute distress. HEENT: Jugular venous pressure is normal. CHEST: Lungs clear to auscultation bilaterally. Unlabored respiratory effort. CARDIAC: Regular rate and rhythm ABDOMEN: Soft, nontender, no hepatosplenomegaly. Bowel sounds present. EXTREMITIES: No clubbing, cyanosis, or edema. Laboratory Laboratory Tests Test 10/22/17 12:45 10/22/17 20:59 10/23/17 04:43 Activated Partial Thromboplast Time 35.5 SEC 25.0 SEC White Blood Count 5.2 TH/MM3 Red Blood Count 3.98 MIL/MM3 Hemoglobin 12.0 GM/DL Hematocrit 35.4 % Mean Corpuscular Volume 89.0 FL Mean Corpuscular Hemoglobin 30.2 PG Mean Corpuscular Hemoglobin Concent 34.0 % Red Cell Distribution Width 13.3 % Platelet Count 209 TH/MM3 Mean Platelet Volume 8.7 FL CBC Comment AUTO DIFF Differential Total Cells Counted 100 Neutrophils % (Manual) 34 % Band Neutrophils % 23 % Lymphocytes % 25 % Monocytes % 15 % Eosinophils % 2 % Basophils % 1 % Neutrophils # (Manual) 3.0 TH/MM3 Differential Comment FINAL DIFF MANUAL Platelet Estimate NORMAL Platelet Morphology Comment NORMAL Blood Urea Nitrogen 16 MG/DL Creatinine 1.15 MG/DL Random Glucose 220 MG/DL Total Protein 5.7 GM/DL Albumin 2.5 GM/DL Calcium Level 7.9 MG/DL Alkaline Phosphatase 71 U/L Aspartate Amino Transf (AST/SGOT) 20 U/L Alanine Aminotransferase (ALT/SGPT) 12 U/L Total Bilirubin 0.3 MG/DL Sodium Level 139 MEQ/L Potassium Level 3.6 MEQ/L Chloride Level 108 MEQ/L Carbon Dioxide Level 21.8 MEQ/L Anion Gap 9 MEQ/L Estimat Glomerular Filtration Rate 64 ML/MIN Troponin I 0.05 NG/ML Assessment and Plan Problem List: (1) Coronary artery disease ICD Codes: I25.10 - Atherosclerotic heart disease of [place] coronary artery without angina pectoris Plan: No angina (2) Renal insufficiency ICD Codes: N28.9 - Disorder of kidney and ureter, unspecified Status: Acute (3) Elevated troponin I level ICD Codes: R74.8 - Abnormal levels of other serum enzymes Status: Acute Plan: Not suggestive of [place] (4) Acute kidney injury ICD Codes: N17.9 - Acute kidney failure, unspecified Plan: resolved Assessment and Plan OK to DC home. Cont carvedilol but hold ACEI. I will do SPECT as outpatient Levon Mullins MD October 23, 2017 07:44
[2017-10-23] MEDS: INSULIN ASPART SUPPLEMENTAL SCALE SQ SCH ×4 (08:00→21:00)
[2017-10-23] MEDS: ASPIRIN EC 81 MG TABEC PO SCH (08:34)
[2017-10-23] MEDS: SODIUM CHLORIDE 0.9% FLUSH 10 ML FLUSH IV FLUSH SCH ×2 (08:34→20:59)
[2017-10-23] MEDS: CARVEDILOL 12.5 MG TAB PO SCH ×2 (08:35→20:59)
--- NOTE | 2017-10-23 09:05 | HHI.PR ---
Subjective Remarks Follow-up gastroenteritis and elevated troponin. Patient still having diarrhea already had 6 episodes since midnight. Reports that stools are forming up denies nausea, vomiting and abdominal pain. Also denies chest pain and shortness of breath. Discussed with nursing Objective Vitals Vital Signs Date Time Temp Pulse Resp B/P (MAP) Pulse Ox O2 Delivery O2 Flow Rate FiO2 10/23/17 08:00 98.0 80 16 138/68 (91) 95 10/23/17 08:00 62 10/23/17 07:00 64 10/23/17 06:00 66 10/23/17 05:00 60 10/23/17 04:00 98.6 70 16 111/57 (75) 94 10/23/17 04:00 65 10/23/17 03:00 69 10/23/17 02:00 71 10/23/17 01:00 71 10/23/17 00:00 71 10/22/17 23:19 98.2 81 16 144/72 (96) 95 10/22/17 23:00 88 10/22/17 22:00 84 10/22/17 21:00 67 10/22/17 20:00 98.2 77 16 117/64 (81) 95 10/22/17 18:00 92 10/22/17 17:00 94 10/22/17 16:00 78 10/22/17 15:04 98.1 81 18 117/59 (78) 95 10/22/17 15:00 77 10/22/17 14:00 77 10/22/17 13:48 97.9 68 16 139/63 (88) 96 10/22/17 13:46 73 10/22/17 13:03 10/22/17 11:44 88 16 114/59 (77) 95 Room Air I/O 10/22/17 10/22/17 10/22/17 10/23/17 10/23/17 10/23/17 07:00 15:00 23:00 07:00 15:00 23:00 Intake Total 2000 ml 480 ml 680 ml Output Total 100 ml Balance 1900 ml 480 ml 680 ml Intake Oral 480 ml 680 ml IV Total 2000 ml Output Stool Total 100 ml # Voids 2 2 # Bowel Movements 2 1 2 Result Diagram: 10/23/17 0443 5/9/18 0443 Imaging Last Impressions Chest X-Ray 10/21/172125 Signed Impressions: Service Date/Time: Saturday, October 21, 2017 21:47 - CONCLUSION: 1. No active disease. Postoperative median sternotomy. Calvin Lafleur MD Objective Remarks GENERAL: This is a well-nourished, well-developed patient, in no apparent distress. SKIN: No rashes, ecchymoses or lesions. Cool and dry. CARDIOVASCULAR: Regular rate and rhythm without murmurs, gallops, or rubs. RESPIRATORY: Clear to auscultation. Breath sounds equal bilaterally. No wheezes , rales, or rhonchi. GASTROINTESTINAL: Abdomen soft, non-tender, nondistended. No guarding. MUSCULOSKELETAL: Extremities without clubbing, cyanosis, or edema. No joint tenderness, effusion, or edema noted. No calf tenderness. Negative Homans sign bilaterally. NEUROLOGICAL: Awake and alert. Cranial nerves II through XII intact. Motor and sensory grossly within normal limits. Five out of 5 muscle strength in all muscle groups. Normal speech. Procedures None A/P Problem List: (1) Elevated troponin I level ICD Code: R74.8 - Abnormal levels of other serum enzymes Status: Acute (2) Gastroenteritis ICD Code: K52.9 - Noninfective gastroenteritis and colitis, unspecified Status: Acute (3) Acute kidney injury ICD Code: N17.9 - Acute kidney failure, unspecified (4) Diabetes mellitus with hyperglycemia ICD Code: E11.65 - Type 2 diabetes mellitus with hyperglycemia Status: Acute Assessment and Plan (1) Elevated troponin I level Probably related to renal failure and dehydration. Troponin levels have trended down and plateaued. No cardiovascular symptoms. Per cardiology not suggestive of an [place]. Continue aspirin, Coreg and hold ALVIN inhibitor. For SPECT outpatient. Follow-up to the echo (2) Gastroenteritis Culture positive for Campylobacter patient educated. C. difficile was negative. Continue supportive care. Hydration. Anti-emetics. Diet as tolerated. Start Lomotil Guaiac positive stool 1 likely secondary to diarrhea. No gross bleeding. Outpatient follow-up with GI Continue IV hydration (3) Acute kidney injury Likely secondary to dehydration from gastroenteritis. Much improved with IV fluid. (4) Diabetes mellitus with hyperglycemia Start diabetic diet. Diabetic education. Monitor fingersticks with sliding scale coverage Discharge Planning Not ready for discharge because of ongoing diarrhea high likelihood of readmission secondary to dehydration. He already presented with acute kidney injury secondary to dehydration Problem Qualifiers (1) Diabetes mellitus with hyperglycemia: Qualified Codes: E11.65 - Type 2 diabetes mellitus with hyperglycemia; Z79.4 - [facility] (current) use of insulin Alex Lopez MD October 23, 2017 09:05
[2017-10-23] MEDS ORDERED: GLUCAGON 1 MG/ML VIAL OTHER PRN (09:15)
[2017-10-23] MEDS ORDERED: DEXTROSE 50% IN WATER 50 ML VIAL(D50) IV PUSH PRN (09:15)
[2017-10-23] MEDS ORDERED: POTASSIUM CHLORIDE 10 MEQ CONTROLLED RELEASE TAB PO ONE (10:00)
[2017-10-23] MEDS ORDERED: ECASA81 PO (10:16)
--- NOTE | 2017-10-23 10:16 | HHI.DCPOC ---
Discharge Care Plan Diagnosis: (1) Gastroenteritis Your Health Problems Are: Difficulty with ADL Exercise Tolerance Goals to Promote Your Health * To prevent worsening of your condition and complications * To maintain your health at the optimal level Directions to Meet Your Goals Take your medications as prescribed Follow your dietary instruction Follow activity as directed Keep your appointments as scheduled Take your immunizations and boosters as scheduled If your symptoms worsen call your PCP, if no PCP go to Urgent Care Center or Emergency Room Smoking is Dangerous to Your Health. Avoid second hand smoke Call the 24-hour hour crisis hotline for domestic abuse at Alex Lopez MD October 23, 2017 10:16
[2017-10-23] MEDS: NS + KCL 20 MEQ INJ 1,000 ML IV SCH ×2 (10:27→20:50)
[2017-10-23] MEDS: DIPHENOXYLATE/ATROPINE 2.5 MG/0.025 MG TAB PO SCH ×3 (12:46→23:28)
[2017-10-23] MEDS: ATORVASTATIN 10 MG TAB PO SCH (20:59)
[2017-10-23] MEDS ORDERED: ONDANSETRON ODT 4 MG TAB SL PRN (22:45)
[2017-10-24] VITALS (11 sets, daily range): BP systolic 100–103; BP diastolic 53–55; PULSE 62–70; RESP 14–20; TEMP 97.8–98.2; O2SAT 93–96
[2017-10-24 05:04] LABS: AUTOMATED NEUTROPHIL # 2.1 TH/MM3 (1.8-7.7); BASOPHIL % 0.6 % (0.0-2.0); EOSINOPHIL # 0.2 TH/MM3 (0-0.4); EOSINOPHIL % 4.3 % (0.0-4.0); HEMATOCRIT 36.6 % (39.0-51.0); HEMOGLOBIN 12.2 GM/DL (13.0-17.0); LYMPH % 38.2 % (9.0-44.0); MEAN CORPUSCULAR HGB CONC 33.3 % (32.0-36.0); MEAN PLATELET VOLUME 8.5 FL (7.0-11.0); MONO % 17.3 % (0.0-8.0); MONOCYTE # 0.9 TH/MM3 (0-0.9); NEUT % 39.6 % (16.0-70.0); PLATELET COUNT 209 TH/MM3 (150-450); RED BLOOD COUNT 4.07 MIL/MM3 (4.50-5.90); RED CELL DISTRIBUTION WIDTH 13.4 % (11.6-17.2); WHITE BLOOD COUNT 5.3 TH/MM3 (4.0-11.0)
[2017-10-24 05:13] LABS: BICARBONATE 22.1 MEQ/L (21.0-32.0); CALCIUM 7.4 MG/DL (8.5-10.1); MAGNESIUM 1.9 MG/DL (1.5-2.5)
[2017-10-24 05:26] LABS: CALCIUM-PROTEIN CORRECTED 8.2 MG/DL (8.5-10.1); TOTAL PROTEIN 5.7 GM/DL (6.4-8.2)
[2017-10-24] MEDS: DIPHENOXYLATE/ATROPINE 2.5 MG/0.025 MG TAB PO SCH (05:59)
--- NOTE | 2017-10-24 08:43 | HHI.DS ---
Discharge Summary Admission Date October 21, 2017 at 23:23 Discharge Date: October 24, 2017 Admitting Diagnosis acs; elevated troponinI; DM; gastroenteritis; OC (1) Elevated troponin I level ICD Code: R74.8 - Abnormal levels of other serum enzymes Diagnosis: Principal Status: Acute (2) Gastroenteritis ICD Code: K52.9 - Noninfective gastroenteritis and colitis, unspecified Diagnosis: Principal Status: Acute (3) Acute kidney injury ICD Code: N17.9 - Acute kidney failure, unspecified Diagnosis: Principal (4) Diabetes mellitus with hyperglycemia ICD Code: E11.65 - Type 2 diabetes mellitus with hyperglycemia Diagnosis: Principal Status: Acute Procedures None Brief History - From Admission 62-year-old male with a medical history significant for CAD status post CABG, hypertension, diabetes who presented to the hospital with complaint of persistent diarrhea, nausea and vomiting. Patient reports about 3 days ago, he was in [place] for a golf tournament, has been out in the sun for a few days. He ate a [employer] sandwich and has been having nonbloody diarrhea since then. There has been no fever or chills. He has been having some nausea and episodes of diaphoresis. Workup in the emergency room in [place] revealed mildly elevated cardiac enzymes, therefore the patient was transferred to the [facility] on a heparin drip for cardiology evaluation. On my evaluation, the patient reports he is feeling much better, he still has the diarrhea but it is decreasing in frequency. He feels like he can eat. He denies any chest pain or shortness of breath. CBC/BMP: 10/24/17 0329 10/24/17 0329 Significant Findings Laboratory Tests Test 10/21/17 21:48 10/21/17 21:50 10/21/17 23:15 10/22/17 00:06 Neutrophils (%) (Auto) 80.3 % (16.0-70.0) Lymphocytes (%) (Auto) 8.7 % (9.0-44.0) Monocytes (%) (Auto) 10.8 % (0.0-8.0) Neutrophils # (Auto) 7.8 TH/MM3 (1.8-7.7) Lymphocytes # (Auto) 0.9 TH/MM3 (1.0-4.8) Monocytes # (Auto) 1.1 TH/MM3 (0-0.9) Blood Urea Nitrogen 19 MG/DL (7-18) Creatinine 2.30 MG/DL (0.60-1.30) Random Glucose 345 MG/DL (74-106) Albumin 3.0 GM/DL (3.4-5.0) Calcium Level 8.4 MG/DL (8.5-10.1) Sodium Level 130 MEQ/L (136-145) Chloride Level 95 MEQ/L (98-107) Estimat Glomerular Filtration Rate 29 ML/MIN (>89) Troponin I 0.15 NG/ML (0.02-0.05) 0.09 NG/ML (0.02-0.05) B-Hydroxybutyrate 0.49 MMOL/L (0.00-0.39) Test 10/22/17 03:50 10/22/17 06:16 10/22/17 12:45 10/22/17 20:59 Urine Protein 30 mg/dL (NEG-TRACE) Urine Glucose (UA) 250 mg/dL (NEG) Red Blood Count 4.34 MIL/MM3 (4.50-5.90) Hemoglobin 12.8 GM/DL (13.0-17.0) Monocytes (%) (Auto) 11.7 % (0.0-8.0) Activated Partial Thromboplast Time 35.2 SEC (24.3-30.1) 35.5 SEC (24.3-30.1) Creatinine 1.50 MG/DL (0.60-1.30) Random Glucose 169 MG/DL (74-106) Albumin 2.6 GM/DL (3.4-5.0) Calcium Level 7.7 MG/DL (8.5-10.1) Sodium Level 135 MEQ/L (136-145) Estimat Glomerular Filtration Rate 47 ML/MIN (>89) Troponin I 0.07 NG/ML (0.02-0.05) Test 10/23/17 04:43 10/24/17 03:29 Red Blood Count 3.98 MIL/MM3 (4.50-5.90) 4.07 MIL/MM3 (4.50-5.90) Hemoglobin 12.0 GM/DL (13.0-17.0) 12.2 GM/DL (13.0-17.0) Hematocrit 35.4 % (39.0-51.0) 36.6 % (39.0-51.0) Band Neutrophils % 23 % (0-6) Monocytes % 15 % (0-8) Random Glucose 220 MG/DL (74-106) 197 MG/DL (74-106) Total Protein 5.7 GM/DL (6.4-8.2) 5.7 GM/DL (6.4-8.2) Albumin 2.5 GM/DL (3.4-5.0) Calcium Level 7.9 MG/DL (8.5-10.1) 7.4 MG/DL (8.5-10.1) Chloride Level 108 MEQ/L (98-107) 109 MEQ/L (98-107) Estimat Glomerular Filtration Rate 64 ML/MIN (>89) 75 ML/MIN (>89) Monocytes (%) (Auto) 17.3 % (0.0-8.0) Eosinophils (%) (Auto) 4.3 % (0.0-4.0) Protein Corrected Calcium 8.2 MG/DL (8.5-10.1) Imaging Last Impressions Chest X-Ray 10/21/172125 Signed Impressions: Service Date/Time: Saturday, October 21, 2017 21:47 - CONCLUSION: 1. No active disease. Postoperative median sternotomy. Calvin Lafleur MD PE at Discharge GENERAL: This is a well-nourished, well-developed patient, in no apparent distress. SKIN: No rashes, ecchymoses or lesions. Cool and dry. CARDIOVASCULAR: Regular rate and rhythm without murmurs, gallops, or rubs. RESPIRATORY: Clear to auscultation. Breath sounds equal bilaterally. No wheezes , rales, or rhonchi. GASTROINTESTINAL: Abdomen soft, non-tender, nondistended. No guarding. MUSCULOSKELETAL: Extremities without clubbing, cyanosis, or edema. No joint tenderness, effusion, or edema noted. No calf tenderness. Negative Homans sign bilaterally. NEUROLOGICAL: Awake and alert. Cranial nerves II through XII intact. Motor and sensory grossly within normal limits. Five out of 5 muscle strength in all muscle groups. Normal speech. Hospital Course (1) Elevated troponin I level Probably related to renal failure and dehydration. Troponin levels have trended down and plateaued. No cardiovascular symptoms. Per cardiology not suggestive of an [place]. Continue aspirin, Coreg and hold ALVIN inhibitor. For SPECT outpatient. Per pt unremarkable echo 6 mos ago (2) Gastroenteritis Culture positive for Campylobacter patient educated. C. difficile was negative. Continue supportive care. Hydration. Anti-emetics. Diet as tolerated. Start Lomotil Guaiac positive stool 1 likely secondary to diarrhea. No gross bleeding. Outpatient follow-up with GI, negative C scope 3 yrs ago We will hold off with antimicrobial therapy considering this is a mild infection which is self limited and he is recovering (3) Acute kidney injury Likely secondary to dehydration from gastroenteritis. Much improved with IV fluid. (4) Diabetes mellitus with hyperglycemia on insulin pump. Last A1c 8.4 pump was adjusted then Start diabetic diet. Diabetic education. Monitor fingersticks with sliding scale coverage Pt Condition on Discharge: Stable Discharge Disposition: Discharge Home Discharge Time: > 30 minutes Discharge Instructions DIET: Follow Instructions for: As Tolerated, No Restrictions, Heart Healthy Diet, Diabetic Diet Activities you can perform: Regular-No Restrictions Activities to Avoid: Driving Follow up Referrals: Cardiology - 1 Week Gastroenterology - 1 Week PCP Follow-up - 1 Week New Medications: Aspirin DR (Aspirin DR) 81 Mg Tabdr 81 MG PO DAILY for Prevent Blood Clot, #30 TAB Continued Medications: Atorvastatin (Lipitor) 10 Mg Tab 10 MG PO HS for Cholesterol Management, #30 TAB 0 Refills Carvedilol (Carvedilol) 12.5 Mg Tab 12.5 MG PO BID, #60 TAB 0 Refills Insulin Lispro (Human) Inj (Humalog Inj) 1,000 Unit/10 Ml Vial 1-9 UNITS SQ ACHS for Blood Sugar Management, #1 VIAL 0 Refills Max dose at bedtime:( )units; sugars< 70,(0)units; sugars 150-199,(1)unit; sugars 200-249,(3)units; sugars 250-299,(5)units; sugars 300-349,(7)units; sugars more than 349,(9)units. Additional Information has asa at home Alex Lopez MD October 24, 2017 08:43
[2017-10-24] MEDS: CARVEDILOL 12.5 MG TAB PO SCH (09:10)
[2017-10-24] MEDS: INSULIN ASPART SUPPLEMENTAL SCALE SQ SCH (09:10)
[2017-10-24] MEDS: SODIUM CHLORIDE 0.9% FLUSH 10 ML FLUSH IV FLUSH SCH (09:11)
[2017-10-24] MEDS: ASPIRIN EC 81 MG TABEC PO SCH (09:11)
== END 2017-10-24 10:15 | disposition home or self-care (01) | DRG 303 ==
LOC: PHED 21:07 → PHEDA 23:23 → HCPC 10-22 13:30
PROVIDERS: ADMIT Internal Medicine; ATTEND Internal Medicine
DX: I25.10 Atherosclerotic heart disease of native coronary artery without angina pectoris (principal); N17.9 Acute kidney failure, unspecified; A04.5 Campylobacter enteritis; I95.9 Hypotension, unspecified; E11.65 Type 2 diabetes mellitus with hyperglycemia; R74.8 Abnormal levels of other serum enzymes; E86.0 Dehydration; I10 Essential (primary) hypertension; K52.9 Noninfective gastroenteritis and colitis, unspecified; E78.5 Hyperlipidemia, unspecified; R55 Syncope and collapse; E66.9 Obesity, unspecified; Z96.41 Presence of insulin pump (external) (internal); Z95.1 Presence of aortocoronary bypass graft; Z79.4 Long term (current) use of insulin; I25.2 Old myocardial infarction; Z68.33 Body mass index [BMI] 33.0-33.9, adult
CPT/HCPCS: 71045; 80048; 80053; 81001; 82010; 82272; 82550; 82552; 82800; 82948; 83605; 83690; 83735; 84155; 84484; 85007; 85025; 85027; 85610; 85730; 87040; 87493; 87506; 93005; 96360; J1644; J1815; J3480; J7030